=== PATIENT | male | born 1935 | race Caucasian/White ===

== ENCOUNTER → 2023-12-23 09:51 | Outpatient (REF) | payer MEDICARE, OTHER, SELFPAY ==
[2023-12-23 11:37] LABS: ALT (SGPT) 14 U/L (0-50); AST (SGOT) 22 U/L (17-59); Albumin 3.6 g/dl (3.5-5.0); Alkaline Phosphatase 92 U/L (38-126); Blood Urea Nitrogen 10 mg/dl (9-20); Calcium 8.6 mg/dl (8.4-10.2); Carbon Dioxide 27 mmol/L (22-30); Chloride 105 mmol/L (98-107); Glucose 142 mg/dl (70-99); HDL Cholesterol 31 mg/dl; LDL Cholesterol, Calculated 54 mg/dl; Potassium 4.2 mmol/L (3.5-5.1); Sodium 137 mmol/L (135-145); Total Bilirubin 1.7 mg/dl (0.2-1.3); Total Cholesterol 99 mg/dl (50-199); Total Protein 6.4 g/dl (6.3-8.2); Triglyceride 73 mg/dl (10-149); Very Low Density Lipoprotein 14 mg/dl (0-30); eGFR > 60.00
[2023-12-23 13:23] LABS: % Basophils 0.4 % (0-2); % Eosinophils 0.6 % (0-6); % Immature Granulocytes 0.3 % (0-0.5); % Lymphocytes 22.7 % (20.5-51.1); % Monocytes 6.5 % (1.7-9.3); % Neutrophils 69.5 % (42.2-75.2); Absolute Lymphocytes 1.5 10^3/uL (1.2-3.4); Absolute Monocytes 0.4 10^3/uL (0.1-0.6); Absolute Neutrophils 4.7 10^3/uL (1.4-6.5); Hematocrit 36.2 % (39.0-52.0); Hemoglobin 12.4 g/dL (13.0-18.0); Mean Corp Hgb Conc. 34.3 g/dL (33.0-37.0); Mean Corpuscular Hgb 30.3 pg (27.0-31.0); Mean Corpuscular Volume 88.5 fL (80.0-94.0); Nucleated Red Blood Cells % 0 % (-); Platelet Count 188 10^3/uL (130-400); Red Blood Cell Count 4.09 10^6/uL (4.70-6.10); Red Cell Dist. Width 13.2 % (11.5-14.5); White Blood Cell Count 6.8 10^3/uL (4.8-10.8)
== END ==
LOC: OLABPG 09:51
PROVIDERS: ATTENDING PHYSICIAN Internal Medicine
DX: E78.5 Hyperlipidemia, unspecified (principal); F03.90 Unspecified dementia, unspecified severity, without behavioral disturbance, psychotic disturbance, mood disturbance, and anxiety; I48.92 Unspecified atrial flutter; I10 Essential (primary) hypertension
CPT/HCPCS: 36415; 80053; 80061; 85025

== ENCOUNTER → 2024-03-14 12:08 | Outpatient (REF) | payer MEDICARE, OTHER, SELFPAY ==
[2024-03-14 13:07] LABS: Hematocrit 34.3 % (39.0-52.0); Hemoglobin 11.7 g/dL (13.0-18.0); Mean Corp Hgb Conc. 34.1 g/dL (33.0-37.0); Mean Corpuscular Volume 87.9 fL (80.0-94.0); Mean Platelet Volume 11.9 fL (7.4-10.4); Platelet Count 180 10^3/uL (130-400); Red Cell Dist. Width 13.2 % (11.5-14.5); White Blood Cell Count 7.1 10^3/uL (4.8-10.8)
[2024-03-14 13:44] LABS: Blood Urea Nitrogen 16 mg/dl (9-20); Calcium 8.5 mg/dl (8.4-10.2); Carbon Dioxide 28 mmol/L (22-30); Chloride 105 mmol/L (98-107); Glucose 132 mg/dl (70-99); Potassium 3.6 mmol/L (3.5-5.1); Sodium 141 mmol/L (135-145); eGFR > 60.00
[2024-03-14 14:15] LABS: Glycohemoglobin (HgbA1c) 7.3 % (4.0-5.6)
== END ==
LOC: OLABPG 12:08
PROVIDERS: ATTENDING PHYSICIAN Nurse Practitioner Gerontology
DX: I63.40 Cerebral infarction due to embolism of unspecified cerebral artery (principal); I10 Essential (primary) hypertension; F03.90 Unspecified dementia, unspecified severity, without behavioral disturbance, psychotic disturbance, mood disturbance, and anxiety; C83.31 Diffuse large B-cell lymphoma, lymph nodes of head, face, and neck; E11.9 Type 2 diabetes mellitus without complications
CPT/HCPCS: 36415; 80048; 83036; 85027

== ENCOUNTER → 2024-03-30 09:26 | Outpatient (REF) | payer MEDICARE, OTHER, SELFPAY ==
[2024-03-30 10:12] LABS: Hematocrit 35.1 % (39.0-52.0); Hemoglobin 11.7 g/dL (13.0-18.0); Mean Corp Hgb Conc. 33.3 g/dL (33.0-37.0); Mean Corpuscular Hgb 29.7 pg (27.0-31.0); Mean Corpuscular Volume 89.1 fL (80.0-94.0); Mean Platelet Volume 11.2 fL (7.4-10.4); Platelet Count 171 10^3/uL (130-400); Red Blood Cell Count 3.94 10^6/uL (4.70-6.10); Red Cell Dist. Width 13.2 % (11.5-14.5); White Blood Cell Count 6.3 10^3/uL (4.8-10.8)
[2024-03-30 10:20] LABS: ALT (SGPT) 13 U/L (0-50); AST (SGOT) 22 U/L (17-59); Albumin 3.7 g/dl (3.5-5.0); Alkaline Phosphatase 98 U/L (38-126); Blood Urea Nitrogen 12 mg/dl (9-20); Calcium 8.8 mg/dl (8.4-10.2); Carbon Dioxide 27 mmol/L (22-30); Chloride 104 mmol/L (98-107); Glucose 149 mg/dl (70-99); HDL Cholesterol 31 mg/dl; LDL Cholesterol, Calculated 53 mg/dl; Potassium 4.2 mmol/L (3.5-5.1); Sodium 140 mmol/L (135-145); Total Bilirubin 1.4 mg/dl (0.2-1.3); Total Cholesterol 103 mg/dl (50-199); Total Protein 6.5 g/dl (6.3-8.2); Triglyceride 98 mg/dl (10-149); Very Low Density Lipoprotein 19 mg/dl (0-30); eGFR > 60.00
[2024-03-30 10:49] LABS: TSH 0.38 uIU/ml (0.47-4.68)
[2024-03-30 11:17] LABS: Glycohemoglobin (HgbA1c) 6.7 % (4.0-5.6)
== END ==
LOC: OLABPG 09:26
PROVIDERS: ATTENDING PHYSICIAN Internal Medicine
DX: R00.1 Bradycardia, unspecified (principal); F03.90 Unspecified dementia, unspecified severity, without behavioral disturbance, psychotic disturbance, mood disturbance, and anxiety; F01.50 Vascular dementia, unspecified severity, without behavioral disturbance, psychotic disturbance, mood disturbance, and anxiety; I10 Essential (primary) hypertension; E78.5 Hyperlipidemia, unspecified; E11.9 Type 2 diabetes mellitus without complications
CPT/HCPCS: 36415; 80053; 80061; 83036; 84443; 85027

== ENCOUNTER → 2024-04-06 10:14 | Outpatient (REF) | payer MEDICARE, OTHER, SELFPAY ==
[2024-04-06 12:09] LABS: Free T4 1.16 ng/dl (0.78-2.19)
== END ==
LOC: OLABPG 10:14
PROVIDERS: ATTENDING PHYSICIAN Internal Medicine
DX: F03.90 Unspecified dementia, unspecified severity, without behavioral disturbance, psychotic disturbance, mood disturbance, and anxiety (principal)
CPT/HCPCS: 36415; 84439

== ENCOUNTER → 2024-04-18 11:27 | Outpatient (REF) | payer MEDICARE, OTHER, SELFPAY ==
[2024-04-18 13:32] LABS: ALT (SGPT) 13 U/L (0-50); AST (SGOT) 19 U/L (17-59); Albumin 3.4 g/dl (3.5-5.0); Alkaline Phosphatase 111 U/L (38-126); Blood Urea Nitrogen 9 mg/dl (9-20); Calcium 8.4 mg/dl (8.4-10.2); Carbon Dioxide 27 mmol/L (22-30); Chloride 106 mmol/L (98-107); Glucose 99 mg/dl (70-99); Potassium 3.5 mmol/L (3.5-5.1); Sodium 140 mmol/L (135-145); Total Bilirubin 1.3 mg/dl (0.2-1.3); eGFR > 60.00
[2024-04-18 13:41] LABS: Free T4 1.21 ng/dl (0.78-2.19)
== END ==
LOC: OLABPG 11:27
PROVIDERS: ATTENDING PHYSICIAN Internal Medicine
DX: I10 Essential (primary) hypertension (principal); R29.6 Repeated falls; E03.9 Hypothyroidism, unspecified; R00.1 Bradycardia, unspecified
CPT/HCPCS: 36415; 80053; 84439; 84443

== ENCOUNTER 2024-05-22 12:02 | Emergency (ER) | payer MEDICARE, OTHER, SELFPAY ==
[2024-05-22 12:08] VITALS: BP 121/52
[2024-05-22 12:13] VITALS: BP 121/52
--- NOTE | 2024-05-22 13:05 | ED.GENMED ---
History of Present Illness
General
Chief Complaint: Change Level of Consciousness
Source: patient, records and spouse
Time Seen by Provider: 05/22/24 12:24
History of Present Illness
History of Present Illness:
88-year-old male presents emergency department after having an unresponsive episode at his facility. According to his , he was enjoying activities when he slumped over. Staff brought him to a another chair and he had another episode of
slumping over, short-lived. Patient denies any complaints. Upon medic arrival patient was awake and alert. Blood sugar 156. Patient has a history of chronic A-fib and bradycardia. She states that overall his mental status has been declining
gradually, no acute changes noted.
Past History
Past History
ED Past Medical History: Arrthythmia (Atrial flutter/fib), Cancer (Prostate with radiation, Lymphoma), CVA, GERD, HTN, Hypercholesterolemia, NIDDM, Other ( rheumatic fever, bowel obstruction, Dementia) and Other (hyperostosis frontalis interna)
ED Past Surgical History: Appendectomy, Orthopedic (arthroscopic left knee, right meniscus repair) and Other (vocal cord nodule removed in the )
Social History
Tobacco: Non-smoker
Alcohol: None
Drug: None
Personal:
Living: assisted living
Employment: Retired
Family History
Family History: CAD and Cancer (This is); Negative Diabetes or Hypertension
Phy Exam
Physical Exam
Physical Exam:
GENERAL: Alert , in no apparent distress
EYE: pupils equal and reactive, no photophobia
NECK: Supple, no significant adenopathy.
ENT: o/p clr, mmm.
CARDIAC: Irregular rhythm, bradycardic
LUNGS: Clear breath sounds bilaterally, no acute respiratory distress, no wheezes/rales/rhonchi
ABDOMEN: Soft, without focal tenderness, no r/g, no cvat
NEUROLOGICAL: Awake but baseline dementia, moves all extremities equally, speech clear, no facial droop
SKIN: Warm and dry, skin intact.
MUSCULOSKELETAL: No edema, well perfused.
PSYCH: Normal and appropriate interaction.
Course
Orders/Labs/Results
Orders:
Orders
05/22/24 12:16
Electrocardiogram (*1) Urgent
Reason for Study: Bradycardia / Tachycardia
EKG- Treatment ONCE
05/22/24 12:35
CMP [Comprehensive Metabolic Panel] Urgent
Complete Blood Count/With Diff Urgent
NT-proBNP Urgent
Troponin I Urgent
05/22/24 14:50
Lorazepam [Ativan] 1 mg IV NOW STA
05/22/24 15:45
Case Management Consult ONCE
Case Management Consult: Discharge Planning
Abnormal Lab Results
05/22/24
12:35
RBC 4.15 L 10^6/uL
(4.70-6.10)
Hgb 12.3 L g/dL
(13.0-18.0)
Hct 36.7 L %
(39.0-52.0)
MPV 10.8 H fL
(7.4-10.4)
Eosinophils % 6.8 H %
(0-6)
Glucose 170 H mg/dl
(70-99)
Total Bilirubin 1.9 H mg/dl
(0.2-1.3)
05/22/24 12:35
05/22/24 12:35
Vital Signs
Initial and Last Documented VS:
Initial Vital Signs
Pulse Resp BP Pulse Ox
37 20 121/52 96
05/22/24 12:08 05/22/24 12:08 05/22/24 12:08 05/22/24 12:08
Last Documented Vital Signs
Pulse Resp BP Pulse Ox
70 14 132/52 96
05/22/24 15:30 05/22/24 15:30 05/22/24 14:35 05/22/24 13:45
*Critical Care Note
Total Time (30-74mins, 75-104mins- exclusive of procedures): Not Applicable
Update Note
Update Note:
Patient presents to the Emergency Department with ___unresponsive episode
Number and Complexity of Problems Addressed at the Encounter
� Chronic conditions affecting care:
� Acute Exacerbation and/or Progression of Chronic Illness:
� Differential Diagnosis includes: But not limited to bradycardia related syncope, electrolyte disorder, ACS, TIA, etc.
Amount and/or Complexity of Data to be Reviewed and Analyzed
� I performed an independent evaluation of and my interpretation is:
EKG: Read by me, A-fib, bradycardia
CT:
Xrays:
Laboratory Studies: Mild anemia
Other:
� Review of other/old records reveals: Prior discharge records reviewed which indicate patient known to have chronic bradycardia which is typically asymptomatic and decisions have been not to pursue further treatment regarding
� Clinical information was obtained by an independent historian: who is bedside
� Prescriptions/Medications Considered but not given:
� Further testing considered but not performed:
Risk of Complications and/or Morbidity or Mortality of Patient Management
� Social determinants of health affecting care:
� Discussion with other providers (PCP, Hospitalists, Consultants, etc):
� Escalation of care including admission/observation vs risk of discharge considered: Long discussion with patient, 2 daughters, , and cardiology Dr. Ruggiero. Patient family declines pacemaker. Recommendation for
hospice, met with hospice nurse Shea as well as case management, they are eager to begin hospice which can be initiated tomorrow. Case discussed with director of emergency nursing at [facility], patient can be accepted back there for the overnight time. With
expectation that hospice will be initiated tomorrow. Daughter prefers to bring patient back herself.
ED Attending Note
-
Portions of this chart may have been created with voice recognition software.� Occasional wrong word or��sound alike� substitutions may have occurred due to the inherent limitations of voice recognition software.
Discharge Plan
Departure
Patient Disposition: Home (Routine Discharge)
Date of Disposition: 05/22/24
Time of Disposition: 16:38
Patient with high blood pressure during this ER visit?: Yes
Condition: Good
Discharge Problem:
Bradycardia
Instructions: Bradycardia, Syncope (Fainting) (DC), BLOOD PRESSURE
Prescriptions:
No Action
finasteride 5 MG tablet
5 mg PO DAILY
lutein 20 MG capsule
20 mg PO DAILY
atorvastatin 40 MG tablet
40 mg PO QPM Qty: 30 2RF
acetaminophen 325 mg Tablet
650 mg PO Q6HPRN MDD 3000 mg PRN (Reason: mild pain/fever>101)
melatonin 3 mg Tablet
3 mg PO HS
omeprazole 10 mg Capsule,Delayed Release(Dr/Ec)
10 mg PO MOWEFR
Eliquis 5 MG tablet
5 mg PO BID
lorazepam 0.5 mg Tablet
0.5 mg PO Q8HPRN PRN (Reason: anxiety)
furosemide 20 mg Tablet
20 mg PO DAILY
furosemide 40 mg Tablet
40 mg PO DAILY
cyanocobalamin (vitamin B-12) 1,000 mcg Tablet Extended Release
1,000 mcg PO Q48H
polyethylene glycol 3350 17 gram Powder In Packet
17 g PO DAILY
amlodipine 5 mg Tablet
5 mg PO DAILY
mirtazapine [Remeron] 15 mg Tablet
7.5 mg PO HS
Referrals:
UNKNOWN - PT DOES,NOT KNOW [Family Provider] -
Interventions
Interventions:
*Risk Screen - Suicide Last Done: 05/22/24 13:31
*General Assessment Last Done: 05/22/24 13:31
*Neglect/Abuse Screening Last Done: 05/22/24 13:31
ED- Fall Risk Assessment Last Done: 05/22/24 13:31
*ED COVID-19 Vaccine History Last Done: 05/22/24 13:31
*Nursing Disposition Last Done: 05/22/24 17:06
ED- Cardiac Assessment Last Done: 05/22/24 13:31
ED- Neurological Assessment Last Done: 05/22/24 12:17
ED-Psychological Assessment Last Done: 05/22/24 15:34
ED- Pulmonary Assessment Last Done: 05/22/24 13:31
Discharge Date and Time
Discharge Date/Time: 05/22/24 17:08
Print Language: MONGOLIAN
[2024-05-22 13:16] LABS: % Basophils 0.5 % (0-2); % Eosinophils 6.8 % (0-6); % Immature Granulocytes 0.2 % (0-0.5); % Lymphocytes 25.3 % (20.5-51.1); % Monocytes 8.6 % (1.7-9.3); % Neutrophils 58.6 % (42.2-75.2); Absolute Eosinophils 0.4 10^3/uL (0-0.7); Absolute Lymphocytes 1.5 10^3/uL (1.2-3.4); Absolute Monocytes 0.5 10^3/uL (0.1-0.6); Absolute Neutrophils 3.6 10^3/uL (1.4-6.5); Hematocrit 36.7 % (39.0-52.0); Hemoglobin 12.3 g/dL (13.0-18.0); Mean Corp Hgb Conc. 33.5 g/dL (33.0-37.0); Mean Corpuscular Hgb 29.6 pg (27.0-31.0); Mean Corpuscular Volume 88.4 fL (80.0-94.0); Mean Platelet Volume 10.8 fL (7.4-10.4); Nucleated Red Blood Cells % 0 % (-); Platelet Count 184 10^3/uL (130-400); Red Blood Cell Count 4.15 10^6/uL (4.70-6.10); Red Cell Dist. Width 13.2 % (11.5-14.5); White Blood Cell Count 6.1 10^3/uL (4.8-10.8)
[2024-05-22 13:29] LABS: NT-proBNP 2550 pg/ml; Troponin I < 0.012 ng/ml
[2024-05-22 13:34] LABS: ALT (SGPT) 14 U/L (0-50); AST (SGOT) 22 U/L (17-59); Albumin 3.7 g/dl (3.5-5.0); Alkaline Phosphatase 93 U/L (38-126); Blood Urea Nitrogen 13 mg/dl (9-20); Calcium 8.8 mg/dl (8.4-10.2); Carbon Dioxide 30 mmol/L (22-30); Chloride 105 mmol/L (98-107); Glucose 170 mg/dl (70-99); Potassium 3.6 mmol/L (3.5-5.1); Sodium 139 mmol/L (135-145); Total Bilirubin 1.9 mg/dl (0.2-1.3); Total Protein 6.4 g/dl (6.3-8.2); eGFR > 60.00
[2024-05-22 13:39] VITALS: BP 96/53
[2024-05-22 14:01] VITALS: BP 97/81
[2024-05-22 14:35] VITALS: BP 132/52
[2024-05-22] MEDS: ATIVAN 1 MG IV (14:55)
--- NOTE | 2024-05-22 15:40 | CON.CAR ---
Consultation
Consultation Request
Date/Time Consultation Requested: 05/22/2024
Date/Time Consultation Performed: 05/22/2024
Requesting Provider: Dr. Maki
Performing Provider: Dr. Donny Ruggiero
Reason for Consultation: Bradycardia, syncope
Medical History
-
History of Present Illness:
HPI: Bhupinder is an 88-year-old male with past medical history of permanent atrial fibrillation, bradycardia, CVA, hypertension, hyperlipidemia, type 2 diabetes, carotid artery disease, and dementia. He presents to ER for evaluation after he had
syncopal episode earlier today. He reportedly was sitting out in the common area of his assisted living facility. He reportedly slumped over and was unresponsive. Staff took him to another area where he again had another episode of slumping over
and unresponsiveness. He was brought to ER where he was found to have heart rate in the 30s. He has chronic atrial fibrillation and prior monitoring has shown bradycardia with pauses up to 3.7 seconds. He has had no prior episodes of syncope
or unresponsiveness. Previously family has declined permanent pacemaker implantation. In ER, patient is agitated, trying to get out of bed, throwing blankets off. Reports he is hungry, but has no other complaints.
PMH:
Permanent atrial fibrillation
Chronic Eliquis anticoagulation
h/o bradycardia
h/o CVA
Hypertension
Hyperlipidemia
Type 2 diabetes mellitus
Carotid artery disease
Dementia
Past Medical History
Past Medical History: Other (In HPI)
Past Surgical History: Other (Vocal cord nodule excision , appendectomy)
Social History
Tobacco: Non-Smoker
Alcohol: None
Drug: None
Personal:
Living: Assisted Living
Employment: Retired
Family History
Family History: Reviewed & Not Pertinent
Allergies / Home Medications
Allergy/AdvReac Type Severity Reaction Status Date / Time
No Known Allergies Allergy Verified 01/23/22 23:56
�Medication �Instructions �Recorded �Confirmed �Type
finasteride 5 mg tablet 5 mg PO DAILY Urinary issue 01/24/18 05/22/24 History
lutein 20 mg capsule 20 mg PO DAILY Supplement 04/22/20 05/22/24 History
atorvastatin 40 mg tablet 40 mg PO QPM #30 tabs 04/24/20 05/22/24 Rx
acetaminophen 325 mg tablet 650 mg PO Q6HPRN PRN mild 11/17/22 05/22/24 History
pain/fever>101
apixaban 5 mg tablet (Eliquis) 5 mg PO BID Blood clot 11/17/22 05/22/24 History
prevention/tx
melatonin 3 mg tablet 3 mg PO HS Sleep 11/17/22 05/22/24 History
omeprazole 10 mg capsule,delayed 10 mg PO MOWEFR Gastrointestinal 11/17/22 05/22/24 History
release issue
furosemide 20 mg tablet 20 mg PO DAILY Fluid 02/16/23 05/22/24 History
retention/Swelling
lorazepam 0.5 mg tablet 0.5 mg PO Q8HPRN PRN anxiety 02/16/23 05/22/24 History
amlodipine 5 mg tablet 5 mg PO DAILY 05/22/24 05/22/24 History
cyanocobalamin (vitamin B-12) 1,000 mcg PO Q48H 05/22/24 05/22/24 History
1,000 mcg tablet,extended release
furosemide 40 mg tablet 40 mg PO DAILY 05/22/24 05/22/24 History
mirtazapine 15 mg tablet (Remeron) 7.5 mg PO HS 05/22/24 05/22/24 History
polyethylene glycol 3350 17 gram 17 g PO DAILY 05/22/24 05/22/24 History
oral powder packet
Review of Systems
-
History Source: Family
All other systems: Negative unless noted
Physical Exam
Vital Signs
Pulse Resp BP Pulse Ox
70 14 132/52 96
05/22/24 15:30 05/22/24 15:30 05/22/24 14:35 05/22/24 13:45
Lab Results
05/22/24 12:35
05/22/24 12:35
Troponin I < 0.012 ng/ml 05/22/24 12:35
[id number]-[id number] Pept 2550 pg/ml 05/22/24 12:35
Physical Exam
General: Well Developed and Well Nourished
HEENT: Normocephalic, Anicteric and Moist Mucous Membranes
Respiratory: Clear and Non Labored Respirations
Cardiac: S1/S2 and Irregular Rhythm
Musculoskeletal: No Clubbing, No Cyanosis and No Edema
Skin: Warm and Dry
Neuro: Awake and Alert
Psych: Agitated
Impression / Plan
-
PCP: Dr. Bright
Cardiology: Dr. Estrada
Impression:
Presented with syncope
Permanent atrial fibrillation w/ slow ventricular response
Chronic Eliquis anticoagulation
h/o bradycardia
h/o CVA
Hypertension
Hyperlipidemia
Type 2 diabetes mellitus
Carotid artery disease
Dementia
Echo 04/04/2021: EF 60 to 65%, mild concentric LVH, trace MR, aortic sclerosis without stenosis
Plan:
-Presented with multiple episodes of unresponsiveness/slumping over.
-ER EKG reviewed, atrial fibrillation with slow ventricular response. Heart rate 38 bpm.
-Given symptomatic bradycardia, pacemaker implantation is warranted, however after discussion with patient's and daughter, they prefer to avoid procedure
-Given patient's advanced dementia and agitation, this is not unreasonable.
-Hospice consult would be appropriate.
-He is not on any AV elicia blockers. Continue to avoid.
-Troponin negative x1.
-Blood pressure stable. Continue amlodipine, Lasix.
-Continue Eliquis 5 mg twice daily for anticoagulation given history of permanent atrial fibrillation. Hemoglobin stable.
HPI: Bhupinder is an 88-year-old male with past medical history of permanent atrial fibrillation, bradycardia, CVA, hypertension, hyperlipidemia, type 2 diabetes, carotid artery disease, and dementia. He presents to ER for evaluation after he had
syncopal episode earlier today. He reportedly was sitting out in the common area of his assisted living facility. He reportedly slumped over and was unresponsive. Staff took him to another area where he again had another episode of slumping over
and unresponsiveness. He was brought to ER where he was found to have heart rate in the 30s. He has chronic atrial fibrillation and prior monitoring has shown bradycardia with pauses up to 3.7 seconds. He has had no prior episodes of syncope
or unresponsiveness. Previously family has declined permanent pacemaker implantation. In ER, patient is agitated, trying to get out of bed, throwing blankets off. Reports he is hungry, but has no other complaints.
Data Reviewed
-
EKG: Tracing Personally Visualized and interpreted
Labs: Labs Reviewed by me
Old Records: Reviewed
--- NOTE | 2024-05-22 16:13 | CM ---
Addendum entered by Tati Chaney 05/22/24 16:42:
Physician, Hospice and admissions at the [facility] have all agreed that plan is for patient to return to [facility] and transition to Hospice tomorrow. Family to transport.
Original Note:
airborne operations manager reviewed patient's chart and received a consult from ED physician plan is for back to [facility]ospice, mattress spring encaser contacted patient's spouse and reviewed hospice options and she has selected [facility],
referral sent to [facility], and will await evaluation from [facility].
Plan; Patient to return to [facility].
== END 2024-05-22 17:08 | disposition home or self-care (01) ==
LOC: EMR 12:02
PROVIDERS: EMERGENCY PHYSICIAN Emergency Medicine; OTHER PHYSICIAN Internal Medicine Cardiovascular Disease
DX: R55 Syncope and collapse (principal); R00.1 Bradycardia, unspecified; I48.20 Chronic atrial fibrillation, unspecified; I10 Essential (primary) hypertension; E11.9 Type 2 diabetes mellitus without complications; E78.00 Pure hypercholesterolemia, unspecified; F03.911 Unspecified dementia, unspecified severity, with agitation; Z86.73 Personal history of transient ischemic attack (TIA), and cerebral infarction without residual deficits; K21.9 Gastro-esophageal reflux disease without esophagitis; I48.92 Unspecified atrial flutter; I77.9 Disorder of arteries and arterioles, unspecified; Z85.72 Personal history of non-Hodgkin lymphomas; Z79.01 Long term (current) use of anticoagulants
CPT/HCPCS: 99284; 96374; 80053; 83880; 84484; 85025; 93005

== ENCOUNTER → 2024-12-29 17:57 | Outpatient (REF) | payer OTHER, MEDICARE, SELFPAY ==
[2024-12-29 20:30] LABS: Urine Albumin Negative (Neg - Trace); Urine Bilirubin Negative (Negative); Urine Character Slightly Cloudy (Clear); Urine Color Yellow; Urine Glucose 1+ (Negative); Urine Ketone Negative (Negative); Urine Leukocyte Negative (Negative); Urine Nitrite Negative (Negative); Urine Occult Blood Negative (Negative); Urine Urobilinogen 1+ (Neg - 1+)
== END ==
LOC: OLABP 17:57
PROVIDERS: ATTENDING PHYSICIAN Family Medicine
DX: I48.21 Permanent atrial fibrillation (principal); I11.9 Hypertensive heart disease without heart failure; E78.5 Hyperlipidemia, unspecified; E11.9 Type 2 diabetes mellitus without complications; I65.29 Occlusion and stenosis of unspecified carotid artery; M62.81 Muscle weakness (generalized); R26.2 Difficulty in walking, not elsewhere classified; Z86.73 Personal history of transient ischemic attack (TIA), and cerebral infarction without residual deficits; R55 Syncope and collapse; R00.1 Bradycardia, unspecified; R53.1 Weakness
CPT/HCPCS: 81003; 87086

== ENCOUNTER → 2025-06-16 10:22 | Outpatient (REF) | payer OTHER, MEDICARE, SELFPAY ==
[2025-06-16 12:53] LABS: Urine Character Clear (Clear)
== END ==
LOC: OLABP 10:22
PROVIDERS: ATTENDING PHYSICIAN Family Medicine
DX: I48.21 Permanent atrial fibrillation (principal); I11.9 Hypertensive heart disease without heart failure; E78.5 Hyperlipidemia, unspecified; E11.9 Type 2 diabetes mellitus without complications; I65.29 Occlusion and stenosis of unspecified carotid artery; M62.81 Muscle weakness (generalized); R26.2 Difficulty in walking, not elsewhere classified; Z86.73 Personal history of transient ischemic attack (TIA), and cerebral infarction without residual deficits; R55 Syncope and collapse; R00.1 Bradycardia, unspecified
CPT/HCPCS: 36415; 81003